=== PATIENT | female | born 1940 | race Caucasian/White ===

== ENCOUNTER 2017-08-10 10:54 | Emergency (ER) | payer OTHER ==
[2017-08-10 11:53] LABS: Absolute Lymphocytes (CBC) 1.5 K/uL (0.7-4.9); Absolute Monocytes 0.8 K/uL (0.1-1.3); Absolute Neutrophil 6.3 K/uL (1.8-8.0); Basophils % 0.4 % (0-1.3); Eosinophils % 0.9 % (0-4.4); Hematocrit 38.2 % (36.0-45.0); Lymphocytes % 17.5 % (15.3-44.8); MCH 30.6 pg (27.0-35.0); MCV 93.4 fL (80-100); MPV 8.2 fL (7.6-11.3); Monocytes % 9.3 % (3.3-12.3); RBC Red Blood Cell Count 4.09 M/uL (3.86-4.86)
[2017-08-10 12:01] LABS: Protime INR 0.94
[2017-08-10] MEDS ORDERED: NA CHLORIDE 0.9% 500 ML ONE (12:06)
[2017-08-10 12:27] LABS: ALT/SGPT 22 U/L (12-78); AST/SGOT 26 U/L (15-37); Albumin 3.9 g/dL (3.4-5.0); Alkaline Phosphatase 76 U/L (45-117); BUN Blood Urea Nitrogen 27 mg/dL (7-18); Bicarbonate 32 mmol/L (21-32); Bilirubin Direct < 0.1 mg/dL (0-0.2); Bilirubin Total 0.3 mg/dL (0.2-1.0); CKMB Creatine Kinase MB 1.2 ng/mL (0.3-3.6); Creatine Phosphokinase 112 U/L (26-192); Glucose Level 102 mg/dL (74-106); NT PRO-BNP 581 pg/mL (<450); Protein, Total 8.3 g/dL (6.4-8.2); Sodium Level 140 mmol/L (136-145)
[2017-08-10] MEDS ORDERED: cloNIDine HCl 0.1 MG TAB ONE (12:29)
[2017-08-10 13:05] LABS: Urine Blood NEGATIVE (NEG); Urine Glucose NEGATIVE (NEG); Urine Protein NEGATIVE (NEG); Urine Specific Gravity 1.015 (1.005-1.030)
[2017-08-10 13:16] LABS: Urine Bacteria 20-50 /HPF (<20); Urine Culture Reflex Order NOT NEEDED; Urine RBC <5 /HPF (NONE SEEN)
--- NOTE | 2017-08-10 13:42 | RAD REPORT ---
EXAM DESCRIPTION: CT - CTHCSPWOC - 08/10/2017 1:21 pm CLINICAL HISTORY: Fall, head and neck injury COMPARISON: None. TECHNIQUE: Axial 5 mm thick images of the head were obtained. Axial 2 mm thick images of the cervic al spine were obtained with sagittal and coronal reconstruction images generated and reviewed. All CT scans are performed using dose optimization technique as appropriate and may include automated exposure control or mA/KV adjustment according to patient size. FINDINGS: No intracranial hemorrhage, mass, edema or acute intracranial finding. No acute cortical based infarc tion. Patient has moderate atrophy and chronic ischemic changes seen. Ventricular size is in proporti on. 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 Arterial and physi ologic calcifications are present. No extra-axial fluid collections. Mastoid air cells and paranasal sinuses are clear. No globe or orbit abnormality seen. Cervical bodies are normal in height. Approximately 3 mm of anterior subluxation of C4 on C5 noted. F acet joint degenerative change can account for this degree of subluxation. Significant C5-6 disc spac e narrowing present. No fracture or acute bone process seen. There is significant degenerative change at the dens anterior arch C1 level. Central canal detail is inherently limited. Patient has advanced facet joint degenerative change throughout much of the cervical spine. No signif icant degree of bony foraminal encroachment identified. IMPRESSION: Moderate severity atrophy and chronic ischemic change with no hemorrhage or acute intrac ranial process seen. Nonhemorrhagic acute infarction changes can be masked by the patient's chronic pattern. If there is c oncern the CVA triggered the patient's fall, followup MR imaging could be performed. Cervical spine degenerative changes are present without fracture identifiable. The 3 millimeter anter ior subluxation of C4 can be accounted for by the advanced facet joint degenerative change.
--- NOTE | 2017-08-10 13:45 | RAD REPORT ---
EXAM DESCRIPTION: CT - Spine Lumbar Wo Con - 08/10/2017 1:21 pm CLINICAL HISTORY: Fall, back pain, radiculopathy COMPARISON: None. TECHNIQUE: Thin section axial imaging of the lumbar spine was performed. Sagittal and coronal recon struction images were generated and reviewed. All CT scans are performed using dose optimization technique as appropriate and may include automated exposure control or mA/KV adjustment according to patient size. FINDINGS: Lumbar bodies are normal in height. No compression fractures identified. No lytic, sclerot ic or expansile bony destructive process seen. AP alignment is normal. Patient has a degenerative rig ht lateral scoliotic curvature. [place] is at the L1-2 disc level. Patient has advanced disc space narro wing, sclerosis and endplate spurring changes left lateral aspect of the L1-2 disc level. Less intens e degenerative disc and endplate changes are noted left lateral L2-3. Right lateral L3-4 disc space n arrowing is present. No significant lateral subluxation deformities. No paraspinal mass or hematoma. No pathologic bone process. Central canal detail is inherently limite d. No gross evidence for disc herniation. No pars defects seen. Patient has prominent facet joint deg enerative change. SI joint degenerative changes are present. Sacral ala fracture not identified. IMPRESSION: Prominent lumbar spine degenerative changes are present as detailed. No fracture or acut e lumbar spine finding identifiable. No gross evidence for disc herniation or central canal pathology. Central canal detail is inherently limited.
--- NOTE | 2017-08-10 13:52 | RAD REPORT ---
EXAM DESCRIPTION: RAD - Wrist Left 3 View - 08/10/2017 1:02 pm CLINICAL HISTORY: Fall, wrist pain COMPARISON: None. FINDINGS: Transverse fracture is present through the distal radial metaphysis. No distraction or ang ulation. Punctate fractures seen at the tip of the ulna styloid. No carpal bone fracture seen. No dis location or periosteal reaction. No pathologic bone process. Soft tissue swelling is present without foreign body. IMPRESSION: Distal radius fracture without distraction or angulation. Fracture present at the tip of the ulna styloid.
--- NOTE | 2017-08-10 13:56 | RAD REPORT ---
EXAM DESCRIPTION: RAD - Chest Single View - 08/10/2017 1:01 pm CLINICAL HISTORY: COPD, fall, chest pain COMPARISON: None. TECHNIQUE: AP portable chest image was obtained . FINDINGS: The lungs are fibrotic. No pulmonary contusion or focal lung parenchymal process. No failu re or volume overload. Heart and vasculature are normal. No measurable pleural effusion and no pneumo thorax. Underlying osteopenic changes are evident. Bilateral shoulder joint degenerative change prese nt. No dislocation or proximal humerus fracture identified. No displaced rib fracture is seen. There is subtle cortical irregularity lateral lower left chest near the diaphragm. This could be nondisplac ed rib fracture approximately eighth rib level correlation can be made with any localizing symptoms. No right-sided rib fractures suspected. . No acute aortic findings suspected. IMPRESSION: Fibrotic lung change with no pulmonary contusion, pneumothorax or other acute finding. Degenerative bony changes are present with possible nondisplaced rib fracture lateral eighth rib leonardo on. Correlation is needed with any localizing symptoms.
--- NOTE | 2017-08-10 15:02 | EDPHYS ---
Physician Documentation [facility] Name: Frances Cooper Age: 77 yrs Sex: Female : 1940 Arrival Date: 08/10/2017 Time: 10:57 Bed 17 Private MD: ED Physician Vijay Maddox HPI: 08/10 11:23 This 77 yrs old Female presents to ER via EMS with complaints of generalized kav weakness. 11:44 This 77 yrs old Female presents to ER via EMS with complaints of left wrist kav pain and generalized weakness and fall. 11:23 Details of fall: The patient fell from an upright position, while walking. Onset: The kav symptoms/episode began/occurred acutely, just prior to arrival. Associated injuries: The patient sustained no obvious injury. Severity of symptoms: At their worst the symptoms were mild, just prior to arrival. The patient has experienced similar episodes in the past, several times, Daughter of patient reports that the patient usually has weakness and falls when she has a UTI, Dehydration or Hypertension. The patient has not recently seen a physician. Historical: - Allergies: 11:14 No Known Allergies; jl7 - Home Meds: 11:14 rivastigmine tartrate oral oral [Active]; meloxicam oral oral [Active]; Cymbalta oral jl7 oral [Active]; Seroquel Oral [Active]; memantine oral oral [Active]; gabapentin oral oral [Active]; Fosamax Oral [Active]; - PMHx: 11:14 Arthritis; Depression; Alzheimers; jl7 - PSHx: 11:14 None; jl7 - Immunization history:: Adult Immunizations up to date. - Social history:: Smoking status: Patient/guardian denies using tobacco. - Ebola Screening: : No symptoms or risks identified at this time. - Family history:: not pertinent. - Hospitalizations: : No recent hospitalization is reported. - History obtained from: daughter. ROS: 11:23 Constitutional: Negative for fever, chills, and weight loss, Eyes: Negative for injury, kav pain, redness, and discharge, ENT: Negative for injury, pain, and discharge, Neck: Negative for injury, pain, and swelling, Cardiovascular: Negative for chest pain, palpitations, and edema, Respiratory: Negative for shortness of breath, cough, wheezing, and pleuritic chest pain, Abdomen/GI: Negative for abdominal pain, nausea, vomiting, diarrhea, and constipation, Back: Negative for injury and pain, : Negative for injury, bleeding, discharge, and swelling, MS/Extremity: Negative for injury and deformity, Neuro: Negative for headache, weakness, numbness, tingling, and seizure, Psych: Negative for depression, anxiety, suicide ideation, homicidal ideation, and hallucinations, Allergy/Immunology: Negative for hives, rash, and allergies, Endocrine: Negative for neck swelling, polydipsia, polyuria, polyphagia, and marked weight changes, Hematologic/Lymphatic: Negative for swollen nodes, abnormal bleeding, and unusual bruising. 11:23 Skin: Positive for 11:25 Skin: Negative for injury, rash, and discoloration. kav 11:25 Constitutional: Positive for Generalized weakness. 11:25 MS/extremity: 11:25 Skin: Exam: 11:25 Constitutional: This is a well developed, well nourished patient who is awake, alert, kav and in no acute distress. Head/Face: Normocephalic, atraumatic. Eyes: Pupils equal round and reactive to light, extra-ocular motions intact. Lids and lashes normal. Conjunctiva and sclera are non-icteric and not injected. Cornea within normal limits. Periorbital areas with no swelling, redness, or edema. ENT: Nares patent. No nasal discharge, no septal abnormalities noted. Tympanic membranes are normal and external auditory canals are clear. Oropharynx with no redness, swelling, or masses, exudates, or evidence of obstruction, uvula midline. Mucous membranes moist. Neck: Trachea midline, no thyromegaly or masses palpated, and no cervical lymphadenopathy. Supple, full range of motion without nuchal rigidity, or vertebral point tenderness. No Meningismus. Chest/axilla: Normal chest wall appearance and motion. Nontender with no deformity. No lesions are appreciated. Respiratory: Lungs have equal breath sounds bilaterally, clear to auscultation and percussion. No rales, rhonchi or wheezes noted. No increased work of breathing, no retractions or nasal flaring. Abdomen/GI: Soft, non-tender, with normal bowel sounds. No distension or tympany. No guarding or rebound. No evidence of tenderness throughout. Back: No spinal tenderness. No costovertebral tenderness. Full range of motion. MS/ Extremity: Pulses equal, no cyanosis. Neurovascular intact. Full, normal range of motion. Neuro: Awake and alert, GCS 15, oriented to person, place, time, and situation. Cranial nerves II-XII grossly intact. Motor strength 5/5 in all extremities. Sensory grossly intact. Cerebellar exam normal. Normal gait. Psych: Awake, alert, with orientation to person, place and time. Behavior, mood, and affect are within normal limits. 11:25 Constitutional: The patient appears in no acute distress, alert, awake, comfortable, non-diaphoretic, non-toxic, well developed, well groomed, well nourished, frail, in obvious distress, mildly distressed. 11:25 : Bladder: tenderness, that is mild. 11:25 Skin: Turgor: is poor. Vital Signs: 11:14 BP 170 / 71; Pulse 66; Resp 16; Temp 98.3; Pulse Ox 97% ; Pain 7/10; jl7 12:43 BP 179 / 68; Pulse 62; Resp 16; Pulse Ox 97% ; jl7 13:55 BP 140 / 83; Pulse 59; Resp 19; Pulse Ox 97% on R/A; mh5 14:50 BP 123 / 59; Pulse 60; Resp 15; Pulse Ox 97% ; jl7 15:30 BP 119 / 59; Pulse 61; Resp 16; Pulse Ox 97% ; jl7 MDM: 11:14 Medical screening is not applicable. 08/10 11:21 Order name: Basic Metabolic Panel; Complete Time: 12:51 08/10 12:28 Interpretation: Normal except: BUN 27; GFR 54. 08/10 11:21 Order name: CBC with Diff; Complete Time: 12:28 08/10 12:28 Interpretation: Within normal limits. 08/10 11:21 Order name: Ckmb; Complete Time: 12:51 08/10 12:51 Interpretation: Within normal limits. 08/10 11:21 Order name: CPK; Complete Time: 12:51 08/10 12:51 Interpretation: Within normal limits. 08/10 11:21 Order name: LFT's; Complete Time: 12:51 08/10 12:28 Interpretation: Normal except: TP 8.3; GLOB 4.4; A/G 0.9. 08/10 11:21 Order name: Magnesium; Complete Time: 12:52 08/10 12:52 Interpretation: Within normal limits. 08/10 11:21 Order name: NT PRO-BNP; Complete Time: 12:51 08/10 12:29 Interpretation: Abnormal: NT PRO-BNP 581. 08/10 11:21 Order name: PT-INR; Complete Time: 12:28 08/10 12:28 Interpretation: Within normal limits. 08/10 11:21 Order name: Ptt, Activated; Complete Time: 12:52 08/10 11:21 Order name: Troponin (emerg Dept Use Only); Complete Time: 12:28 08/10 12:28 Interpretation: Within normal limits. 08/10 11:21 Order name: XRAY Chest (1 view); Complete Time: 14:36 08/10 14:37 Interpretation: Abnormal. 08/10 12:39 Order name: Urine Dipstick--Ancillary (enter results); Complete Time: 13:31 08/10 12:39 Order name: Urine Culture 08/10 12:39 Order name: Urine Microscopic Only; Complete Time: 13:30 08/10 13:31 Interpretation: UBACT 20-50. 08/10 11:21 Order name: EKG; Complete Time: 11:22 08/10 11:21 Order name: Cardiac monitoring; Complete Time: 12:36 08/10 11:21 Order name: EKG - Nurse/Tech; Complete Time: 12:36 08/10 11:21 Order name: IV Saline Lock; Complete Time: 12:36 08/10 11:21 Order name: Labs collected and sent; Complete Time: 12:36 08/10 11:21 Order name: O2 Per Protocol; Complete Time: 12:36 08/10 11:21 Order name: O2 Sat Monitoring; Complete Time: 12:36 08/10 11:21 Order name: Urine Dipstick-Ancillary (obtain specimen); Complete Time: 12:36 08/10 12:35 Order name: CT Lumbar Spine Wo Con; Complete Time: 14:32 08/10 14:33 Interpretation: No acute disease. [facility] 08/10 12:58 Order name: Wrist Left (3 View) XRAY; Complete Time: 14:33 [facility] 08/10 14:36 Interpretation: Abnormal: Distal radius fx and fx tip of ulna styloid. [facility] 08/10 13:03 Order name: Head C Spine Mpr Wo Con; Complete Time: 14:31 [facility] 08/10 14:32 Interpretation: No acute disease. [facility] 08/10 14:39 Order name: Sugar Tong Forearm Splint; Complete Time: 15:21 [facility] 08/10 14:39 Order name: Sling: left upper extremity; Complete Time: 15:21 [facility] Administered Medications: 12:34 Drug: NS 0.9% 1000 ml Route: IV; Rate: 125 ml/hr; Site: right antecubital; [facility] 15:54 Follow up: Response: No adverse reaction; IV Status: IV converted to saline lock [facility] 12:34 Drug: cloNIDine 0.1 mg Route: PO; [facility] 14:50 Follow up: BP 123 / 59; Pulse 60 bpm; Resp 15 bpm; Pulse Ox 97% [facility] 14:51 Follow up: Response: Blood pressure is lowered [facility] Disposition: 08/11 06:34 Co-signature as Attending Physician, Vijay Maddox MD I agree with the assessment and [facility] plan of care. Disposition: 08/10/17 15:01 Discharged to Home. Impression: Displaced fracture of left radial styloid process, Displaced fracture of left ulna styloid process. - Condition is Stable. - Discharge Instructions: Ulnar Fracture, Radial Head Fracture, [id number]. - Prescriptions for Ibuprofen 600 mg Oral Tablet - take 1 tablet by ORAL route every 6 hours As needed take with food; 30 tablet. - Medication Reconciliation Form, Thank You Letter, Antibiotic Education, Prescription Opioid Use form. - Follow up: Musa Honeycutt MD; When: 2 - 3 days; Reason: Recheck today's complaints, Continuance of care, Re-evaluation by your physician. - Problem is new. - Symptoms have improved. Signatures: Dispatcher [employer] Vijay Cano MD MD cha Vern, Katherine, SKIN CARE THERAPIST SKIN CARE THERAPIST Brooklyn Nava, RN RN jl7 Corrections: (The following items were deleted from the chart) 08/10 12:53 12:53 Within normal limits. vishnu mares 12:58 12:53 OrderId: [id number] PrecursorText: InterpretationText: vishnu mares 13:00 11:44 Wrist Left 2 View+RAD.RAD.BRZ ordered. EDMS EDMS 13:03 12:35 Head Brain Wo Cont+CT.RAD.BRZ ordered. EDMS EDMS 13:04 12:35 C Spine Wo Con+CT.RAD.BRZ ordered. EDMS EDMS 13:31 12:58 Within normal limits. vishnu kajarred 13:31 13:31 Normal except: UBACT 20-50. vishnu mares 15:55 15:01 08/10/2017 15:01 Discharged to Home. Impression: Displaced fracture of left jl7 radial styloid process; Displaced fracture of left ulna styloid process. Condition is Stable. Forms are Medication Reconciliation Form, Thank You Letter, Antibiotic Education, Prescription Opioid Use. Follow up: Musa Honeycutt; When: 2 - 3 days; Reason: Recheck today's complaints, Continuance of care, Re-evaluation by your physician. Problem is new. Symptoms have improved. kav
--- NOTE | 2017-08-10 15:02 | ER ---
Nurse's Notes [facility] Name: Frances Cooper Age: 77 yrs Sex: Female : 1940 Arrival Date: 08/10/2017 Time: 10:57 Bed 17 Private MD: Diagnosis: Displaced fracture of left radial styloid process;Displaced fracture of left ulna styloid process Presentation: 08/10 11:05 Presenting complaint: EMS states: It appears she fell last night, left wrist appears jl7 swollen and bruised, there's an abrasion to bridge of nose. Transition of care: patient was not received from another setting of care. Onset of symptoms was August 10, 2017. Risk Assessment: Do you want to hurt yourself or someone else? Patient reports no desire to harm self or others. Initial Sepsis Screen: Does the patient meet any 2 criteria? No. Patient's initial sepsis screen is negative. Does the patient have a suspected source of infection? No. Patient's initial sepsis screen is negative. Care prior to arrival: None. 11:05 Method Of Arrival: EMS: [facility] 11:05 Acuity: JOHNNY 3 jl7 Triage Assessment: 11:14 General: Appears in no apparent distress. uncomfortable, Behavior is calm, cooperative, jl7 Pt's daughter states "She started acting a little strange yesterday. Normally when she acts like that she has a UTI.". Pain: Complains of pain in left wrist Pain does not radiate. Pain currently is 7 out of 10 on a pain scale. Quality of pain is described as aching. EENT: No signs and/or symptoms were reported regarding the EENT system. Neuro: Level of Consciousness is awake, alert, obeys commands, Oriented to person, place, time. Cardiovascular: Patient's skin is warm and dry. Respiratory: Airway is patent Respiratory effort is even, unlabored, Respiratory pattern is regular, symmetrical. GI: No signs and/or symptoms were reported involving the gastrointestinal system. : No signs and/or symptoms were reported regarding the genitourinary system. Derm: Skin is pink, warm \\T\\ dry. Bruising that is dark purple, on dorsal aspect of left forearm and left wrist. Musculoskeletal: Swelling present in dorsal aspect of left forearm and left wrist. Historical: - Allergies: 11:14 No Known Allergies; jl7 - Home Meds: 11:14 rivastigmine tartrate oral oral [Active]; meloxicam oral oral [Active]; Cymbalta oral jl7 oral [Active]; Seroquel Oral [Active]; memantine oral oral [Active]; gabapentin oral oral [Active]; Fosamax Oral [Active]; - PMHx: 11:14 Arthritis; Depression; Alzheimers; jl7 - PSHx: 11:14 None; jl7 - Immunization history:: Adult Immunizations up to date. - Social history:: Smoking status: Patient/guardian denies using tobacco. - Ebola Screening: : No symptoms or risks identified at this time. - Family history:: not pertinent. - Hospitalizations: : No recent hospitalization is reported. - History obtained from: daughter. Screenin:15 Abuse screen: Denies threats or abuse. Denies injuries from another. Nutritional jl7 screening: No deficits noted. Tuberculosis screening: No symptoms or risk factors identified. Fall Risk Fall in past 12 months (25 points). IV access (20 points). Total Reyes Fall Scale indicates High Risk Score (45 or more points). Fall prevention measures have been instituted. Side Rails Up X 2 Placed Close to Nursing Station Frequent Obs/Assessments Occuring Family Present and informed to notify staff if the need to leave the bedside As available patient and family educated on Fall Prevention Program and Strategies. Assessment: 11:15 General: See triage assessment. jl7 12:15 Reassessment: No changes from previously documented assessment. Patient and/or family jl7 updated on plan of care and expected duration. Pain level reassessed. Patient is alert, oriented x 3, equal unlabored respirations, skin warm/dry/pink. 12:30 Reassessment: Pt reports pain to the back of head, provider notified. jl7 13:30 Reassessment: Patient and/or family updated on plan of care and expected duration. Pain jl7 level reassessed. Patient is alert, oriented x 3, equal unlabored respirations, skin warm/dry/pink. 14:30 Reassessment: Patient and/or family updated on plan of care and expected duration. Pain jl7 level reassessed. Pt laying in bed with eyes closed, respirations even and unlabored, no signs of distress noted. Vital Signs: 11:14 BP 170 / 71; Pulse 66; Resp 16; Temp 98.3; Pulse Ox 97% ; Pain 7/10; jl7 12:43 BP 179 / 68; Pulse 62; Resp 16; Pulse Ox 97% ; jl7 13:55 BP 140 / 83; Pulse 59; Resp 19; Pulse Ox 97% on R/A; mh5 14:50 BP 123 / 59; Pulse 60; Resp 15; Pulse Ox 97% ; jl7 15:30 BP 119 / 59; Pulse 61; Resp 16; Pulse Ox 97% ; jl7 ED Course: 10:57 Patient arrived in ED. em1 11:05 Brooklyn Fowler, RN is Primary Nurse. jl7 11:07 Triage completed. jl7 11:14 [facility] Muñoz FNP [facility]. kav 11:14 Vijay Maddox MD is Attending Physician. kav 11:14 Arm band placed on. jl7 11:15 Patient has correct armband on for positive identification. Placed in gown. Bed in low jl7 position. Call light in reach. Side rails up X2. Adult w/ patient. patient monitor on. Pulse ox on. NIBP on. Warm blanket given. 12:00 Initial lab(s) drawn, by ct, sent to lab. Urine collected: clean catch specimen, jl7 cloudy. Inserted saline lock: 22 gauge in right antecubital area, using aseptic technique. Blood collected. 12:[address] via stretcher. sw 12:58 X-ray completed. Portable x-ray completed in exam room. Patient tolerated procedure jb2 well. 13:01 XRAY Chest (1 view) In Process Unspecified. EDMS 13:02 Wrist Left (3 View) XRAY In Process Unspecified. EDMS 13:19 CT completed. Patient tolerated procedure well. Patient moved back from CT. sw 13:21 CT Lumbar Spine Wo Con In Process Unspecified. EDMS 13:21 Head C Spine Mpr Wo Con In Process Unspecified. EDMS 14:44 EKG done, by biomedical instrument technician. reviewed by Amelia ROSE. at1 14:59 Musa Honeycutt MD is Referral Physician. kav 15:21 Orthoglass splint: Sugar tong splint applied on left arm. Sling applied to left arm. 5 15:53 No provider procedures requiring assistance completed. IV discontinued, intact, jl7 bleeding controlled, No redness/swelling at site. Pressure dressing applied. Administered Medications: 12:34 Drug: NS 0.9% 1000 ml Route: IV; Rate: 125 ml/hr; Site: right antecubital; jl7 15:54 Follow up: Response: No adverse reaction; IV Status: IV converted to saline lock jl7 12:34 Drug: cloNIDine 0.1 mg Route: PO; jl7 14:50 Follow up: BP 123 / 59; Pulse 60 bpm; Resp 15 bpm; Pulse Ox 97% jl7 14:51 Follow up: Response: Blood pressure is lowered jl7 Outcome: 15:01 Discharge ordered by . vishnu 15:53 Discharged to home ambulatory. jl7 15:53 Condition: stable 15:53 Discharge instructions given to patient, family, Instructed on discharge instructions, follow up and referral plans. medication usage, Demonstrated understanding of instructions, follow-up care, medications, Prescriptions given X 1. 15:55 Patient left the ED. jl7 Signatures: Dispatcher [employer] EDMS Amelia Muñoz, ELECTRICAL DESIGNER ELECTRICAL DESIGNER Cpao Wagner Eric em1 Ivis pepe, cotton washer EKG Tat1 Eun Chairez Maria mh5 Brooklyn Fowler, RN RN jl7 Corrections: (The following items were deleted from the chart) 15:54 15:30 BP 119 / 59; Pulse 18bpm; Resp 16bpm; Pulse Ox 97%; jl7 jl7
--- NOTE | 2017-08-10 16:53 | EKG ---
Test Date: 2017-08-10 Test Time: 14:40:45 Optical Scientist: JAIRO MEASUREMENT RESULTS: Intervals: Rate: 60 MA: 212 QRSD: 96 QT: 440 QTc: 440 [place]: P: 83 MA: 212 QRS: 16 T: 66 INTERPRETIVE STATEMENTS: Sinus rhythm with 1st degree AV block Otherwise normal ECG Compared to ECG 11/17/1999 11:59:00 First degree AV block now present Sinus bradycardia no longer present Electronically Signed On 08-10-17 16:52:31 CDT by Aden Davis
== END 2017-08-10 15:55 | disposition home or self-care (01) ==
LOC: ER 10:54
PROC: 2W3DX1Z Immobilization of Left Lower Arm using Splint (ICD-10-PCS; principal; 2017-08-10)
DX: S52.512A Displaced fracture of left radial styloid process, initial encounter for closed fracture (principal); S52.612A Displaced fracture of left ulna styloid process, initial encounter for closed fracture; W19.XXXA Unspecified fall, initial encounter; Y93.01 Activity, walking, marching and hiking; Y92.9 Unspecified place or not applicable; G30.9 Alzheimer's disease, unspecified; F02.80 Dementia in other diseases classified elsewhere, unspecified severity, without behavioral disturbance, psychotic disturbance, mood disturbance, and anxiety; F32.9 Major depressive disorder, single episode, unspecified
CPT/HCPCS: 36415; 70450; 71045; 72125; 72131; 80048; 80076; 81003; 81015; 82550; 82553; 83735; 83880; 84484; 85025; 85610; 85730; 87086; 87088; 93005; 96360; 96361; 99285